=== PATIENT | female | born 1955 | race Caucasian/White ===

== ENCOUNTER → 2016-07-08 | Outpatient (CLI) | payer BC, OTHER ==
[~2016-07-08] MED LIST: ASPIRIN E.C. 8181 MG PO; CYMBALTA 60MG60 MG PO; GLUCOSAMINE & C1 CAP PO; NORITATE1% TP; OXYCONTIN 10MG10 MG PO; PERCOCET 325 MG1 TA2 PO; ULTRAM 50MG TAB50 MG PO; ZANAFLEX 4MG TAB4 MG PO
== END ==
LOC: MC.RAD 10:58
DX: Z12.31 Encounter for screening mammogram for malignant neoplasm of breast (principal)

== ENCOUNTER → 2017-08-11 | Outpatient (CLI) | payer BC, OTHER | LOC: MC.RAD 13:18 | DX: Z12.31 Encounter for screening mammogram for malignant neoplasm of breast (principal) ==

== ENCOUNTER → 2018-01-27 | Outpatient (CLI) | payer BC, OTHER | LOC: COL.RAD 01-26 09:15 | DX: S43.491A Other sprain of right shoulder joint, initial encounter (principal) | CPT/HCPCS: A9585; Q9967 ==

== ENCOUNTER → 2018-09-06 | Outpatient (CLI) | payer BC, OTHER | LOC: MC.RAD 11:10 | DX: Z12.31 Encounter for screening mammogram for malignant neoplasm of breast (principal) ==

== ENCOUNTER → 2019-11-18 | Outpatient (CLI) | payer BC, MEDICARE, OTHER | LOC: MC.RAD 09:24 | DX: Z12.31 Encounter for screening mammogram for malignant neoplasm of breast (principal) ==

== ENCOUNTER 2020-08-31 07:05 | Day surgery (SDC) | payer BC, MEDICARE, OTHER ==
[~2020-08-31] VITALS: Ht 170.2 cm; Wt 55.4 kg
[2020-08-31 07:35] VITALS: BP 142/85; PULSE 92; TEMP 97.9
[2020-08-31] MEDS ORDERED: NEURONTIN100 MG/CAP PO (08:09)
[2020-08-31] MEDS ORDERED: LIORESAL 1010 MG/TAB PO (08:10)
--- NOTE | 2020-08-31 09:20 | NUR ---
PATIENT TO RECOVERY BAY 3 POST PROCEDURE VIA CART ACCOMPANIED BY RN SIMONAPHOLIVIA. TO CHAIR AMBULATORY WITH 1 PERSON ASSIST. MADE COMFORTABLE IN CHAIR. WARM BLANKET GIVEN. VITALS TAKEN. REPORT FROM RN SIMONAPHORN. GIVEN JUICE AND PUDDING. NO NAUSEA OR PAIN.
--- NOTE | 2020-08-31 09:23 | NUR ---
AT BEDSIDE TO TALK WITH PATIENT.
[2020-08-31 09:30] VITALS: BP 126/77; PULSE 74
[2020-08-31 09:45] VITALS: BP 134/81; PULSE 78
--- NOTE | 2020-08-31 09:47 | NUR ---
IV SITE TO RIGHT HAND DISCONTINUED. NO REDNESS OR SWELLING. SECURED WITH COTTON AND COBAN.
--- NOTE | 2020-08-31 09:55 | NUR ---
WRITTEN COPIES OF DISMISSAL INSTRUCTIONS REVIEWED WITH PATIENT. VERBAL EXPLAINATION GIVEN OF INSTRUCTIONS. PATIENT VERBALIZES UNDERSTANDING. PATIENT SIGNS IN ACKNOWLEDGMENT. WRITTEN COPIES SENT WITH PATIENT
--- NOTE | 2020-08-31 10:05 | NUR ---
PATIENT ESCORTED OUT TO WAITING EMT DRIVER ACCOMPANIED BY ARUN KO VIA WHEELCHAIR. ASSISTED TO VEHICLE.
== END 2020-08-31 10:05 | disposition home or self-care (01) ==
LOC: SDCO 07:05
DX: Z12.11 Encounter for screening for malignant neoplasm of colon (principal); D12.2 Benign neoplasm of ascending colon; K64.1 Second degree hemorrhoids; K57.30 Diverticulosis of large intestine without perforation or abscess without bleeding; G89.29 Other chronic pain; M19.90 Unspecified osteoarthritis, unspecified site; M54.9 Dorsalgia, unspecified; Z20.822 Contact with and (suspected) exposure to COVID-19; Z88.1 Allergy status to other antibiotic agents; Z79.82 Long term (current) use of aspirin; Z79.899 Other long term (current) drug therapy; Z82.3 Family history of stroke
CPT/HCPCS: J2704; J7030

== ENCOUNTER → 2020-11-20 | Outpatient (CLI) | payer BC, MEDICARE, OTHER ==
[~2020-11-20] MED LIST changes: +LIORESAL 1010 MG/TAB PO; +NEURONTIN100 MG/CAP PO
== END ==
LOC: MC.RAD 09:00
DX: Z12.31 Encounter for screening mammogram for malignant neoplasm of breast (principal)

== ENCOUNTER → 2021-11-26 | Outpatient (CLI) | payer BC, MEDICARE, OTHER | LOC: MC.RAD 15:24 | DX: Z12.31 Encounter for screening mammogram for malignant neoplasm of breast (principal); Z13.820 Encounter for screening for osteoporosis ==

== ENCOUNTER → 2023-12-29 | Outpatient (CLI) | payer BC, MEDICARE | LOC: MC.RAD 13:12 | DX: Z12.31 Encounter for screening mammogram for malignant neoplasm of breast (principal) ==